=== PATIENT | female | born 1995 | race Caucasian/White ===

== ENCOUNTER 2024-04-23 01:10 | Inpatient (IN) | payer OTHER ==
[2024-04-23] MEDS: DEXTROSE 5%-LACTATED RINGERS 1,000 ML IV SCH (01:55)
[2024-04-23] MEDS ORDERED: OXYTOCIN 20 UNITS in 0.9% NS 20 UNIT/1,000 ML INFUS.BAG IV ONE (02:02)
[2024-04-23] MEDS ORDERED: LIDOCAINE HCL 1% PRESERVATIVE FREE - 30ML VIAL ONE (02:02)
[2024-04-23] MEDS ORDERED: OXYTOCIN 30 UNITS in 0.9% NS 30 UNIT/500 ML INFUS.BAG IVPB ONE (02:06)
[2024-04-23 02:16] LABS: BASO % 0.1 % (0-2.0); EOS % 0.1 % (0-4.5); HEMATOCRIT 35.8 % (32.4-45.2); HEMOGLOBIN 11.9 GM/dL (10.7-15.3); LYMPH % 6.4 % (8-40); MCH 26.1 pg (25.7-33.7); MCHC 33.1 g/dl (32.0-36.0); MEAN PLT VOLUME 10.5 fl (7.5-11.1); MONO % 6.3 % (3.8-10.2); NEUT % 87.1 % (42.8-82.8); PLATELET COUNT 122 10^3/uL (134-434); RBC 4.54 M/mm3 (3.60-5.2); RDW 15.4 % (11.6-15.6); WHITE BLOOD COUNT 12.6 K/mm3 (4.0-10.0)
[2024-04-23 02:26] LABS: INR 0.96 (0.83-1.09); PROTHROMBIN TIME (PATIENT) 10.9 SEC (9.7-13.0)
[2024-04-23 02:28] LABS: ACTIVATED PTT 25.3 SECONDS (25.2-36.5)
[2024-04-23] MEDS: OXYTOCIN 20 UNITS in 0.9% NS 20 UNIT/1,000 ML INFUS.BAG IV SCH (02:35)
[2024-04-23 02:37] LABS: CHLORIDE 107 mmol/L (98-107); SODIUM 138 mmol/L (136-145)
[2024-04-23 02:38] LABS: CALCIUM 8.9 mg/dL (8.5-10.1)
[2024-04-23 02:39] LABS: ANION GAP 9 mmol/L (4-13); BLOOD UREA NITROGEN 10.2 mg/dL (7-18); CO2 22 mmol/L (21-32); GLUCOSE,RANDOM 99 mg/dL (74-106)
[2024-04-23 02:42] LABS: CREATININE 0.6 mg/dL (0.55-1.3)
[2024-04-23] MEDS ORDERED: ACETAMINOPHEN 325 MG TABLET (FP) PO PRN (03:04)
[2024-04-23] MEDS ORDERED: METHYLERGONOVINE MALEATE 0.2 MG/1 ML AMP IM PRN (03:04)
[2024-04-23] MEDS ORDERED: oxyCODONE HCL 5 MG TABLET PO PRN (03:04)
[2024-04-23] MEDS ORDERED: WITCH HAZEL 50% (TUCKS) 40 PAD/JAR PAD TP PRN (03:04)
[2024-04-23] MEDS ORDERED: BENZOCAINE 28 GM HEMORRHOIDAL OINTMENT TP PRN (03:04)
[2024-04-23] MEDS ORDERED: BISACODYL 10 MG SUPP.RECT RC PRN (03:04)
[2024-04-23 03:31] LABS: HIV INTERPRETATION NEGATIVE (NEGATIVE)
[2024-04-23 03:35] VITALS: BMI 25.9
[2024-04-23] MEDS: IBUPROFEN 600 MG TABLET (FP) PO PRN (05:47)
[2024-04-23] MEDS: PRENATAL VITAMINS W/ FOLIC ACID TABLET (FP) PO SCH (10:53)
[2024-04-23] MEDS: FERROUS SO4 325 MG TABLET (FP) PO SCH (10:53)
[2024-04-24] MEDS: BENZOCAINE 20% 57 GM BOTTLE TP PRN (06:28)
[2024-04-24 08:27] LABS: BASO % 0.2 % (0-2.0); EOS % 0.4 % (0-4.5); HEMATOCRIT 31.8 % (32.4-45.2); HEMOGLOBIN 10.4 GM/dL (10.7-15.3); MCHC 32.6 g/dl (32.0-36.0); MEAN CELL VOLUME 79.8 fl (80-96); MEAN PLT VOLUME 9.8 fl (7.5-11.1); MONO % 6.2 % (3.8-10.2); NEUT % 80.2 % (42.8-82.8); PLATELET COUNT 90 10^3/uL (134-434); RBC 3.99 M/mm3 (3.60-5.2); RDW 15.5 % (11.6-15.6)
[2024-04-24] MEDS ORDERED: SENNOSIDES/DOCUSATE COMBO (SENNA PLUS) TABLET (UD) PO PRN (22:00)
[2024-04-24 23:08] VITALS: RESP 18
[2024-04-25 10:47] VITALS: BP 109/68; PULSE 93; TEMP 97.9
== END 2024-04-25 12:40 | disposition home or self-care (01) | DRG 807 ==
LOC: JDEL 01:10 → JLDR 01:45 → J3W 05:46
PROVIDERS: ADMIT Obstetrics & Gynecology; ATTEND Obstetrics & Gynecology
PROC: 10E0XZZ Delivery of Products of Conception, External Approach (ICD-10-PCS; principal; 2024-04-23)
PROC: 0W8NXZZ Division of Female Perineum, External Approach (ICD-10-PCS; 2024-04-23)
DX: O80 Encounter for full-term uncomplicated delivery (principal); Z37.0 Single live birth; Z3A.39 39 weeks gestation of pregnancy
CPT/HCPCS: 36415; 59409; 80048; 85025; 85610; 85730; 86780; 86803; 86850; 86900; 86901; 87389